=== PATIENT | female | born 1940 | race Caucasian/White ===

== ENCOUNTER → 2017-04-30 | Outpatient (CLI) | payer OTHER ==
[~2017-04-30] MED LIST: BIMA01SOL OU; BIOT10008 PO; CALC600T57 PO; CALCIUM PO; CELE10TA PO; CELE1CAP4 PO; CITA20TA4 PO; COLA100C5 PO; COUM1TAB17 PO; COUM2.5T17 PO; ESTR2TA PO; LISI-542 PO; MAGN400T5 PO; MELA1TAB PO; METF500T13 PO; MULTCAP PO; OMEG350C PO; PERC5TAB12 PO; SIMV10TA2 PO; SPIR25TA2 PO; VIT D PO; VITA100066 PO
[2017-04-30 14:33] LABS: BLOOD UREA NITROGEN 17 MG/DL (7-18); CREATININE FOR GFR 0.78 MG/DL (0.55-1.02); GLOMERULAR FILTRATION RATE > 60.0 (>39)
== END ==
LOC: M LAB 12:59
PROVIDERS: ATTEND Surgery Plastic and Reconstructive Surgery
DX: T85.44XA Capsular contracture of breast implant, initial encounter (principal); Y83.1 Surgical operation with implant of artificial internal device as the cause of abnormal reaction of the patient, or of later complication, without mention of misadventure at the time of the procedure

== ENCOUNTER → 2017-09-04 | Outpatient (CLI) | payer OTHER ==
[2017-09-04 11:25] LABS: MICROSCOPIC INDICATED? MAN YES (NO)
[2017-09-04 11:28] LABS: MEAN CORPUSCULAR HEMOGLOBIN 28.8 pg (27.0-33.0); MEAN CORPUSCULAR HGB CONC 33.3 g/dl (32.0-36.5); MEAN CORPUSCULAR VOLUME 86.6 fl (80.0-96.0); PLATELET COUNT, AUTOMATED 282 10^3/uL (150-450); RED CELL DISTRIBUTION WIDTH 12.5 % (11.5-14.5); WHITE BLOOD COUNT 5.6 10^3/uL (4.0-10.0)
[2017-09-04 11:29] LABS: BACTERIA, URINE SMALL AMOUNT; HYALINE CAST, URINE NONE SEEN /lpf (0-1); MICROSCOPIC EXAM PERFORMED; RBC, URINE NONE SEEN /hpf (0-3); SQUAMOUS EPITHELIAL CELL URINE SMALL AMOUNT /hpf (SMALL AMT)
[2017-09-04 11:39] LABS: INR 0.86
--- NOTE | 2017-09-04 11:56 | REP ---
Chest two views HISTORY: Preop Comparison: 07/13/2016 The lungs are clear. The heart is normal in size. The pulmonary vasculature is normal in appearance. The bony structure is intact. IMPRESSION: No acute disease. Signed by Amrit Cooper MD 09/04/2017 11:48 A
[2017-09-04 12:12] LABS: ALBUMIN 3.7 GM/DL (3.2-5.2); ALBUMIN/GLOBULIN RATIO 1.37 (1.00-1.93); ALKALINE PHOSPHATASE 83 U/L (45-117); ALT/SGPT 41 U/L (12-78); ANION GAP 6 MEQ/L (8-16); AST/SGOT 16 U/L (7-37); BILIRUBIN,TOTAL 0.4 MG/DL (0.2-1.0); BLOOD UREA NITROGEN 17 MG/DL (7-18); CALCIUM LEVEL 9.8 MG/DL (8.8-10.2); CARBON DIOXIDE LEVEL 31 MEQ/L (21-32); CHLORIDE LEVEL 104 MEQ/L (98-107); CREATININE FOR GFR 0.81 MG/DL (0.55-1.02); GLOMERULAR FILTRATION RATE > 60.0 (>39); GLUCOSE, FASTING 113 MG/DL (83-110); POTASSIUM SERUM 4.5 MEQ/L (3.5-5.1); SODIUM LEVEL 141 MEQ/L (136-145); TOTAL PROTEIN 6.4 GM/DL (6.4-8.2)
[2017-09-04 12:29] LABS: ERYTHROCYTE SEDIMENTATION RATE 13 mm/hr (0-30)
--- NOTE | 2017-09-06 00:36 | ECGEPIP ---
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 First-degree AV block is new Electronically Signed On 09-06-2017 0:36:04 EST by Terrance Stone
== END ==
LOC: M ADMPAT 09:23
PROVIDERS: ATTEND Orthopaedic Surgery
DX: Z01.818 Encounter for other preprocedural examination (principal); M17.12 Unilateral primary osteoarthritis, left knee; E11.9 Type 2 diabetes mellitus without complications; Z79.01 Long term (current) use of anticoagulants; Z88.0 Allergy status to penicillin; Z79.899 Other long term (current) drug therapy; R10.9 Unspecified abdominal pain

== ENCOUNTER 2017-09-17 09:28 | Inpatient (IN) | payer OTHER ==
[2017-09-04 10:03] VITALS: BP 124/70
--- NOTE | 2017-09-11 15:40 | HPE ---
DATE OF ADMISSION: 09/17/2017 ATTENDING PHYSICIAN: Homero Patterson MD CHIEF COMPLAINT: Left knee pain and stiffness. HISTORY: Patient is a pleasant, 77-year-old female with progressively worsening left knee pain and stiffness. She has failed to improve with conservative measures. She continues to have symptoms with weightbearing activities and activities of daily living (ADL). She has consented for an elective left total knee arthroplasty with Dr. Patterson. Medical optimization with Adonis RESENDIZ pending and was not available for review today. CURRENT MEDICATIONS: - Lumigan 0.01 daily - metformin 500 mg daily - citalopram 20 mg daily - Celebrex 200 mg daily - lisinopril 5 mg daily - Zocor 10 mg daily - She also takes a daily multivitamin, calcium with vitamin D, vitamin D, magnesium, fish oil, melatonin, Biotin and a stool softener. ALLERGIES: AMOXICILLIN. CURRENT MEDICAL CONDITIONS: Diabetes. Depression. Osteoarthritis. PAST SURGICAL HISTORY: Right total knee arthroplasty. Tubal ligation. Breast augmentation. Total hysterectomy. Cholecystectomy. Bladder suspension. SOCIAL HISTORY: Patient denies tobacco or alcohol use. REVIEW OF SYSTEMS: Patient denies fevers, chills, nausea, vomiting, or diarrhea. She denies chest pain, shortness of breath, lightheadedness, headaches, cough, or abdominal pain. She does have continued left knee pain with weightbearing activities and activities of daily living. PHYSICAL EXAMINATION: VITAL SIGNS: Height 5 foot 5 inches. Weight 145 pounds. Temperature 98.5. Blood pressure 130/82. Heart rate 77. Respirations 14. HEAD: Normocephalic. NECK: Supple without lymphadenopathy. HEART: Regular rate and rhythm. LUNGS: Clear to auscultation bilaterally. MUSCULOSKELETAL: Inspection of the left knee reveal no gross abnormalities. Her skin is intact. She does have tenderness along the medial joint line. Range of motion and strength are normal. No hip irritability elicited with range of motion. Her calve is soft, nontender to palpation with no palpable cords noted. LABORATORY DATA: Chest x-ray: No acute disease. EKG: Sinus rhythm with first-degree AV block. Comprehensive metabolic profile: Fasting glucose elevated at 113, BUN 17, creatinine for GFR 0.81, GFR greater than 60, sodium 141, potassium 4.5, chloride 104, carbon dioxide 31, anion gap decreased at 6, calcium 9.8, AST 16, ALT 41, alkaline phosphatase 83, total bilirubin 0.4, total protein 6.4, albumin 3.7, albumin globulin ratio 1.37. Complete blood count: WBC 5.6, RBC 4.69, hemoglobin 13.5, hematocrit 40.6, platelets 282, erythrocyte sedimentation rate 13. Prothrombin time decreased at 11.8, INR 0.86. Nasal and sinus culture shows growth of a few Staphylococcus aureus. Urinalysis positive for trace leukocyte esterase with a urine culture showing Klebsiella pneumoniae, only 20,000 colony count. IMPRESSION/PLAN: 1. Left knee degenerative arthritis with x-rays notable for end stage degenerative changes. Patient has consented for an elective left total knee arthroplasty with Dr. Patterson. Medical optimization pending with Adonis RESENDIZ. 2. Nasal and sinus culture revealing Staphylococcus aureus. Patient treated per protocol with nasal Bactroban and Hibiclens scrubs. [facility]
[~2017-09-17] VITALS: Ht 165.1 cm; Wt 68.4 kg
[2017-09-17] MEDS ORDERED: ACETAMINOPHEN 500 MG TAB PO ONE (09:45)
[2017-09-17] MEDS ORDERED: LR 1,000 ML IV ONE (09:45)
[2017-09-17] MEDS ORDERED: TRANEXAMIC ACID 100 MG/ML 10ML VIAL As Ordered ONE (10:45)
[2017-09-17] MEDS ORDERED: EPINEPHrine INJ 1 MG/ML 1ML AMP As Ordered ONE (10:46)
[2017-09-17] MEDS ORDERED: ceFAZolin 1GM INJ (J0690) As Ordered ONE (10:46)
[2017-09-17] MEDS ORDERED: BUPIVACAINE HCL 0.25% 10 ML VIAL As Ordered ONE (10:46)
[2017-09-17] MEDS ORDERED: BUPIVACAINE LIPOSOME/PF 1.3% 20 ML VIAL (13.3MG/ML)(EXPAREL) As Ordered ONE (10:46)
[2017-09-17] MEDS ORDERED: fentaNYL 100 MCG/2 ML INJECTION (J3010) As Ordered ONE ×2 (11:12→13:10)
[2017-09-17] MEDS ORDERED: MIDAZOLAM INJ 2 MG/2 ML VIAL (J2250) As Ordered ONE ×2 (11:12→13:10)
[2017-09-17] MEDS ORDERED: fentaNYL 100 MCG/2 ML INJECTION (J3010) IV ONE (12:00)
[2017-09-17] MEDS ORDERED: MIDAZOLAM INJ 2 MG/2 ML VIAL (J2250) IV ONE (12:00)
[2017-09-17] MEDS ORDERED: EPINEPHrine INJ 1 MG/ML 1ML AMP ONE (12:43)
[2017-09-17] MEDS ORDERED: dexameTHASONE 10 MG/1 ML VIAL PRES.FREE (J1100) ONE (12:43)
[2017-09-17] MEDS ORDERED: ROPIvacaine 0.5% 30 ML INJECTION (J2795) ONE (12:43)
[2017-09-17] MEDS ORDERED: PHENYLephrine HCL 500 MCG/5 ML (100MCG/ML) SYRINGE (J2370) As Ordered ONE (13:10)
[2017-09-17] MEDS ORDERED: LIDOCAINE 2% INJ 100 MG/5 ML SDV (FOR ANES.) As Ordered ONE (13:10)
[2017-09-17] MEDS ORDERED: PROPOFOL 200 MG/20 ML VIAL As Ordered ONE (13:10)
[2017-09-17] MEDS ORDERED: ePHEDrine SULFATE 25 MG/5 ML(5MG/ML) SYRINGE As Ordered ONE (13:18)
--- NOTE | 2017-09-17 14:50 | RO ---
DATE OF OPERATION: 09/17/2017 PREOPERATIVE DIAGNOSIS: Left knee degenerative arthritis. POSTOPERATIVE DIAGNOSIS: Left knee degenerative arthritis. PROCEDURE: Left total knee arthroplasty using a size 2.5 cruciate-retaining femoral component, 2.5 tibial tray, 10 mm rotating-platform polyethylene insert and a 32 mm polyethylene button. The prosthesis was a PFC knee made by [employer]. All components were cemented. SURGEON: Homero Patterson MD CHIEF POWER DISPATCHER: Heydi Sharon Mcdonald ANESTHESIA: Spinal with left femoral nerve block. COMPLICATIONS: None. ESTIMATED BLOOD LOSS: Less than 20 mL. SPECIMENS: Joint surface. DESCRIPTION OF PROCEDURE: After antibiotics were given intravenously preoperatively and a successful left femoral nerve block and then a spinal anesthetic was induced, the tourniquet was placed on the left upper thigh and not inflated. The left lower extremity was carefully prepped and draped in the usual sterile fashion. Then, after appropriate time-out, the leg was elevated, and the tourniquet was inflated to 250 mmHg for 49 minutes. A longitudinal incision was made for a medial parapatellar approach to the knee. Bovie cautery was used to coagulate the crossing vessels. A medial parapatellar arthrotomy was performed. Subperiosteal dissection around the proximal medial and proximal lateral tibial plateau was performed. Then, the patella was everted, and the knee was flexed. The anterior cruciate ligament (ACL) was debrided. The drill placed down the center of the femoral canal, followed by the distal femoral cutting jig set at 5-degree valgus cut for a left knee at 10-mm resection level. The block was pinned in position and then the distal femoral cut performed. AP sizing jig measured for a 2.5 prosthesis. The 3-degree external rotation block was then pinned, followed by the 4-in-1 block, and then the anterior and posterior chamfer cuts performed, taking great care to protect the surrounding soft tissues. We then exposed the proximal tibia, used the extramedullary alignment jig to estimate being parallel to the mechanical axis of the tibia, referencing off the medial tibial condyle, which is the bare bone exposed. We measured 4 mm from that position. Then, the block was pinned into position. A secondary check with the extramedullary oly confirmed that we appeared to be parallel to the mechanical axis. The proximal tibial osteotomy was thus performed. Then, we placed the lamina supervisor fleshing laterally and performed a completion of medial meniscectomy and debridement of the posterior and medial osteophytes. Then placed the lamina supervisor fleshing medially and performed a completion of lateral meniscectomy and debridement of the posterior and lateral osteophytes. The 10-mm spacer block fit nicely with good symmetry in flexion and in extension. It was very stable to varus and valgus stress testing. We then exposed the proximal tibia, sized for a 2.5 tray, which was pinned in position, followed by the reamer and broach. The trial polyethylene placed. The trial femoral component was placed. The knee brought into extension, everted the patella, and the patellar osteotomy was performed, sized for a 32 button. The lug holes drilled. The patellar prosthesis applied, and the patellofemoral tracking was anatomic. We then drilled the lug holes for the femur, removed all the trial components. I injected Exparel into the periosteal soft tissues of the femur and tibia, as well as the posterior joint capsule, as well as the arthrotomy edges. Sharon Mcdonald then mixed the cement on the back table as I prepared the bony surfaces for cementing. A copious amount of pulsatile lavage irrigant solution. She was also critical to the success of the procedure by helping to manipulate the knee, help with appropriate soft tissue retraction, such that I could perform the operation smoothly and efficiently. She also helped to close the wound, as well as prepare the patient. After all the bony surfaces were thoroughly dried, I cemented the tibial tray, removed excess cement, placed the polyethylene, cemented the femoral component, removed excess cement, brought the knee into extension, cemented the patellar button, removed excess cement, and held the knee into extension with the knee patellar clamp applied until the cement hardened. As we were awaiting this, I copiously pulsatile lavage irrigated out the knee joint once again, then placed tranexamic acid into the knee, and then closed the arthrotomy beginning at the apex with two #1 polydioxanone suture (PDS) sutures, the medial parapatellar area was closed with a single #1 PDS suture, and then we closed the capsule with a running #1 Stratafix double-arm, then released the tourniquet, and then irrigated again, and then closed the deep subdermal tissues with interrupted #2-0 PDS. The skin was closed with dev, covered by Adaptic dry sterile bulky dressing. She was then transferred to the recovery room in stable condition. There were no intraoperative complications.
--- NOTE | 2017-09-17 14:50 | CR.PDOC ---
[facility] Consultation Consultation CONSULTATION REPORT FOR: Dr Thrasher REASON FOR CONSULTATION: Medical Management DATE OF VISIT: 09/17/17 ATTENDING: Dr. Allan Rios PCP: Dr Mcdonald HPI: 77year oldF with a past medical history significant for OA, POD 0 Lt TKA as per Orthopedics. Pt is seen in PACU. No acute medical complaints. Pt states pain is controlled. Denies any fevers, chills, weakness, fatigue, Headache, Chest Pain, Shortness of breath, cough, palpitations, abdominal pain, N/V/D or changes in bowel or bladder habits. PMHx: NIDDM Depression. Osteoarthritis. HTN HLD glaucoma PSH: Right total knee arthroplasty. Tubal ligation. Breast augmentation. Total hysterectomy. Cholecystectomy. Bladder suspension. SOCHX: Resides in: [facility] Marital Status: Tobacco use: denies ETOH: denies FAMHX: Mother HTN, cerebral hemorrhage. Father cerebral hemorrhage. Siblings. H/O Breast Ca, DM. Children 2 sons, 1 dtr. thyroid disease 1 son overdose. ROS: As noted in HPI, otherwise 11pt ROS of systems reviewed and unremarkable. PE: GEN: 77yoF, appears stated age. Awake and alert. No acute distress. Alert and oriented x 3. HEENT: Normocephalic, atraumatic. Sclera are nonicteric. Conjunctiva without injection. Nose midline. No facial asymmetry. Moist mucous membranes. Pharynx pink and moist. Neck supple, trachea midline. No lymphadenopathy or thyromegaly appreciated. CHEST: Regular rate and rhythm, +S1, +S2 LUNGS: Clear to auscultation bilaterally. No wheezes, rales, or rhonchi. Breathing appears symmetric and easy. Patient is speaking in full sentences. No accessory muscle use. ABD: Round, soft, non-tender, non-distended. +Bowel sounds throughout. No rebound or guarding. No costovertebral angle tenderness. EXT: Pulses 2+ bilaterally dorsalis pedis and radial. No lower extremity edema appreciated. SKIN: Humphreys, dry, warm. Capillary refill <2sec. No rashes. NEURO: Alert and oriented x 3. A/P. 77year oldF with a past medical history significant for OA, POD 0 Lt TKA as per Orthopedics. Pt is seen in PACU. 1. POD 0 Lt TKA. Mgmt as per Orthopedics. Pain control as per Ortho. Bowel care as per Ortho. DVT px as per Ortho. Check labs in AM. CBC/CMP/Mag level. 2. NIDDM Metformin on hold. CC diet. SSI. 3. HTN. Lisinopril on hold, likely restart in AM. 4. HLD. Statin. 5. Depression. Celexa. 6. Glaucoma. Cont outpt regimen. Thank you for your consultation. We will continue to follow along with you. Vital Signs/I&O Vital Signs Date Time Temp Pulse Resp B/P (MAP) Pulse Ox O2 Delivery O2 Flow Rate FiO2 09/17/17 12:05 74 18 122/59 (80) 100 Nasal Cannula 3 09/17/17 11:10 98.9 I&O- Last 24 Hours up to 6 AM 09/18/17 06:00 Intake Total 0 ml Output Total 650 ml Balance -650 ml Laboratory Data Labs 24H Laboratory Tests 2 09/17/17 10:55: Bedside Glucose (Misc Panel) 129H CBC/BMP Item Value Date Time White Blood Count 5.6 10^3/uL 09/04/17 1107 Red Blood Count 4.69 10^6/uL 09/04/17 1107 Hemoglobin 13.5 g/dl 09/04/17 1107 Hematocrit 40.6 % 09/04/17 1107 Mean Corpuscular Volume 86.6 fl 09/04/17 1107 Mean Corpuscular Hemoglobin 28.8 pg 09/04/17 1107 Mean Corpuscular Hemoglobin Concent 33.3 g/dl 09/04/17 1107 Red Cell Distribution Width 12.5 % 09/04/17 1107 Platelet Count 282 10^3/uL 09/04/17 1107 Erythrocyte Sedimentation Rate 13 mm/hr 09/04/17 1107 Sodium Level 141 MEQ/L 09/04/17 1107 Potassium Level 4.5 MEQ/L 09/04/17 1107 Chloride Level 104 MEQ/L 09/04/17 1107 Carbon Dioxide Level 31 MEQ/L 09/04/17 1107 Anion Gap 6 MEQ/L L 09/04/17 1107 Blood Urea Nitrogen 17 MG/DL 09/04/17 1107 Creatinine 0.81 MG/DL 09/04/17 1107 Glomerular Filtration Rate > 60.0 09/04/17 1107 Fasting Glucose 113 MG/DL H 09/04/17 1107 Calcium Level 9.8 MG/DL 09/04/17 1107 Total Bilirubin 0.4 MG/DL 09/04/17 1107 Aspartate Amino Transf (AST/SGOT) 16 U/L 09/04/17 1107 Alanine Aminotransferase (ALT/SGPT) 41 U/L 09/04/17 1107 Alkaline Phosphatase 83 U/L 09/04/17 1107 Total Protein 6.4 GM/DL 09/04/17 1107 Albumin 3.7 GM/DL 09/04/17 1107 Albumin/Globulin Ratio 1.37 09/04/17 1107 Allergies Coded Allergies: Amoxicillin (Verified Allergy, Intermediate, RASH, 09/17/17) TAPE (Verified Allergy, Unknown, ADHESIVES, 09/17/17) Home Medications Scheduled (Multivitamins) 1 Cap Cap, 1 CAP PO DAILY, (Reported) (Ewing-3 350 mg) 1 Cap Cap, 1 CAP PO DAILY, (Reported) (Calcium + D3 600-200 mg-Unit) Unknown Strength Tab, Unknown Dose PO DAILY, ( Reported) Bimatoprost (Lumigan) 50 Drop/2.5 Ml Paige, 1 DROP OU DAILY, (Reported) Biotin (Vitamin H) (Biotin) 1,000 Mcg Tab, 1,000 MCG PO DAILY, (Reported) Cholecalciferol (Vitamin D) 1,000 Unit Tab, 1,000 UNIT PO DAILY, (Reported) Citalopram Hydrobromide (Citalopram Hydrobromide) 20 Mg Tab, 20 MG PO DAILY, ( Reported) Docusate Sodium (Colace) 100 Mg Cap, 100 MG PO DAILY, (Reported) Lisinopril (Lisinopril) 5 Mg Tab, 5 MG PO DAILY, (Reported) Magnesium Oxide (Magnesium Oxide 400) 400 Mg Tab, 400 MG PO DAILY, (Reported) Melatonin (Melatonin) 1 Mg Tab, 1.5 MG PO DAILY, (Reported) Metformin Hydrochloride (Metformin HCl) 500 Mg Tab, 500 MG PO DAILY, (Reported) Simvastatin (Simvastatin) 10 Mg Tab, 10 MG PO DAILY, (Reported) Veronika Alan Sep 17, 2017 14:50
[2017-09-17] MEDS ORDERED: MORPHINE 1MG/ML IN 0.9% NACL 100ML IV BAG IV PRN (15:00)
[2017-09-17] MEDS ORDERED: diphenhydrAMINE INJ 50MG/ML VIAL (J1200) IV PRN (15:00)
[2017-09-17] MEDS ORDERED: PERCOCET 5MG/325MG TAB PO PRN (15:00)
[2017-09-17] MEDS ORDERED: EPIDURAL/PCA KEYS XX PRN (15:00)
[2017-09-17] MEDS ORDERED: ONDANSETRON 4MG/2ML VIAL (J2405) IV PRN ×2 (15:00)
[2017-09-17] MEDS ORDERED: NALOXONE INJ 0.4 MG/1 ML VIAL (J2310) IV PRN (15:00)
[2017-09-17] MEDS ORDERED: fentaNYL 100 MCG/2 ML INJECTION (J3010) IV PRN (15:00)
[2017-09-17] MEDS ORDERED: LR 1,000 ML IV SCH (15:00)
[2017-09-17] MEDS ORDERED: FLEET ENEMA PR PRN (15:00)
[2017-09-17] MEDS ORDERED: ACETAMINOPHEN TAB 650MG DOSE (2X325MG) PO PRN (15:00)
[2017-09-17] MEDS ORDERED: NALBUPHINE HCL 10 MG/ML AMP (J2300) IV PRN (15:00)
[2017-09-17] MEDS ORDERED: GLUCAGON FOR INJ 1 MG VIAL (J1610) SC PRN (15:45)
[2017-09-17] MEDS ORDERED: GLUCOSE 4 GM CHEW TABLET PO PRN (15:45)
[2017-09-17] MEDS ORDERED: DEXTROSE 50% 50 ML SYRINGE IV PRN (15:45)
[2017-09-17] MEDS ORDERED: WARFARIN SOD 5 MG TAB PO ONE (17:00)
[2017-09-17] MEDS: HumaLOG INSULIN (NovoLOG) PER UNIT SC SCH ×2 (17:30→21:24)
[2017-09-17 18:30] VITALS: BP 156/73
[2017-09-17 19:00] VITALS: BP 148/74
[2017-09-17] MEDS: LR 1,000 ML IV SCH (19:48)
[2017-09-17 20:00] VITALS: BP 141/71
[2017-09-17 21:00] VITALS: BP 143/71
[2017-09-17] MEDS: CitaloPRAM (CeleXA) 20 MG TAB PO SCH (21:23)
[2017-09-17] MEDS: SIMVASTATIN 10 MG TAB PO SCH (21:23)
[2017-09-17] MEDS: SENOKOT S TAB PO SCH (21:23)
[2017-09-17 22:00] VITALS: BP 141/70
[2017-09-17 23:00] VITALS: BP 138/70
[2017-09-18 02:00] VITALS: BP 138/74
[2017-09-18] MEDS: LR 1,000 ML IV SCH (03:30)
[2017-09-18 06:00] VITALS: BP 136/69
[2017-09-18] MEDS ORDERED: ONDANSETRON 4 MG TAB (S0181) PO PRN (06:45)
[2017-09-18] MEDS ORDERED: PERCOCET 5MG/325MG TAB PO PRN (06:45)
[2017-09-18] MEDS ORDERED: DEXTROSE 50% 50 ML SYRINGE IV PRN (07:30)
[2017-09-18] MEDS ORDERED: HumaLOG INSULIN (NovoLOG) PER UNIT SC SCH ×2 (07:30→21:00)
[2017-09-18] MEDS ORDERED: GLUCOSE 4 GM CHEW TABLET PO PRN (07:30)
[2017-09-18 07:44] LABS: IMMATURE GRANULOCYTE % 0.4 % (0-0); LYMPH # 1.6 10^3/uL (1.5-4.5); LYMPH % 17.6 % (24.0-44.0); MEAN CORPUSCULAR HEMOGLOBIN 28.4 pg (27.0-33.0); MEAN CORPUSCULAR HGB CONC 32.8 g/dl (32.0-36.5); MEAN CORPUSCULAR VOLUME 86.6 fl (80.0-96.0); MONO # 0.9 10^3/uL (0.0-0.8); MONO % 10.1 % (0.0-5.0); NEUTROPHILS # 6.6 10^3/uL (1.8-7.7); NEUTROPHILS % 71.9 % (36.0-66.0); PLATELET COUNT, AUTOMATED 216 10^3/uL (150-450); RED CELL DISTRIBUTION WIDTH 12.7 % (11.5-14.5); WHITE BLOOD COUNT 9.2 10^3/uL (4.0-10.0)
[2017-09-18 07:55] LABS: INR 1.02
[2017-09-18 08:07] LABS: ALBUMIN/GLOBULIN RATIO 1.11 (1.00-1.93); ALKALINE PHOSPHATASE 116 U/L (45-117); ALT/SGPT 422 U/L (12-78); ANION GAP 7 MEQ/L (8-16); AST/SGOT 667 U/L (7-37); BILIRUBIN,TOTAL 0.4 MG/DL (0.2-1.0); BLOOD UREA NITROGEN 11 MG/DL (7-18); CALCIUM LEVEL 8.7 MG/DL (8.8-10.2); CARBON DIOXIDE LEVEL 29 MEQ/L (21-32); CHLORIDE LEVEL 107 MEQ/L (98-107); CREATININE FOR GFR 0.78 MG/DL (0.55-1.02); GLOMERULAR FILTRATION RATE > 60.0 (>39); GLUCOSE, FASTING 112 MG/DL (83-110); MAGNESIUM LEVEL 1.9 MG/DL (1.8-2.4); POTASSIUM SERUM 4.3 MEQ/L (3.5-5.1); SODIUM LEVEL 143 MEQ/L (136-145); TOTAL PROTEIN 5.7 GM/DL (6.4-8.2)
[2017-09-18] MEDS: HumaLOG INSULIN (NovoLOG) PER UNIT SC SCH ×4 (08:36→21:00)
[2017-09-18] MEDS: MIRALAX *UNIT DOSE* 17GM PACKET PO SCH (08:36)
[2017-09-18] MEDS: MOM 30ML SUSPENSION UDC PO SCH (08:36)
[2017-09-18] MEDS: SENOKOT S TAB PO SCH ×2 (08:37→21:45)
[2017-09-18] MEDS: PERCOCET 5MG/325MG TAB PO PRN ×4 (08:37→22:45)
[2017-09-18] MEDS: MULTIVITAMINS/MINERALS THERAP 1 TAB PO SCH (08:37)
[2017-09-18] MEDS ORDERED: OPTH OU SCH (09:00)
[2017-09-18] MEDS ORDERED: LUMIGAN 0.01% OU SCH (09:00)
[2017-09-18 09:39] LABS: TRIGLYCERIDES LEVEL 76 MG/DL (<150)
[2017-09-18 10:00] VITALS: BP 135/68
[2017-09-18 13:58] LABS: CHOLESTEROL LEVEL 243 MG/DL (<200)
[2017-09-18 14:00] VITALS: BP 133/69
[2017-09-18] MEDS ORDERED: WARFARIN SOD 5 MG TAB PO ONE (17:00)
--- NOTE | 2017-09-18 19:50 | REP ---
LEFT KNEE, TWO VIEWS: HISTORY: Knee replacement. The patient is status post left total knee replacement. There is no acute fracture or dislocation. A small amount of subcutaneous air and surgical dev are present in the overlying soft tissue. IMPRESSION: The patient is status post left total knee replacement. There is anatomic alignment. Signed by Amrit Cooper MD 09/19/2017 08:11 A
[2017-09-18] MEDS ORDERED: MELATONIN 5MG TABLET (PATIENT'S OWN MED) PO SCH ×2 (21:00)
[2017-09-18] MEDS ORDERED: ENTER DRUG NAME HERE (PATIENT'S OWN MED) OU SCH (21:00)
[2017-09-18] MEDS ORDERED: LUMIGAN 0.01% EYE DROPS (PATIENT'S OWN MED) OU SCH ×2 (21:00)
[2017-09-18] MEDS ORDERED: ENTER DRUG NAME HERE (PATIENT'S OWN MED) PO SCH (21:00)
[2017-09-18] MEDS: SIMVASTATIN 10 MG TAB PO SCH (21:45)
[2017-09-18] MEDS: CitaloPRAM (CeleXA) 20 MG TAB PO SCH (21:45)
[2017-09-18 22:00] VITALS: BP 133/69
[2017-09-19] MEDS: PERCOCET 5MG/325MG TAB PO PRN ×3 (05:21→14:52)
[2017-09-19 06:00] VITALS: BP 152/77
[2017-09-19 07:10] LABS: ANION GAP 5 MEQ/L (8-16); BLOOD UREA NITROGEN 9 MG/DL (7-18); CALCIUM LEVEL 8.6 MG/DL (8.8-10.2); CARBON DIOXIDE LEVEL 29 MEQ/L (21-32); CHLORIDE LEVEL 104 MEQ/L (98-107); CREATININE FOR GFR 0.87 MG/DL (0.55-1.02); GLOMERULAR FILTRATION RATE > 60.0 (>39); GLUCOSE, FASTING 158 MG/DL (83-110); POTASSIUM SERUM 3.9 MEQ/L (3.5-5.1); SODIUM LEVEL 138 MEQ/L (136-145)
[2017-09-19 07:17] LABS: BASO % 0.1 % (0.0-1.0); EOS # 0.1 10^3/uL (0.0-0.50); EOS % 0.6 % (0.0-3.0); IMMATURE GRANULOCYTE % 0.4 % (0-0); LYMPH # 1.4 10^3/uL (1.5-4.5); LYMPH % 17.1 % (24.0-44.0); MEAN CORPUSCULAR HEMOGLOBIN 28.1 pg (27.0-33.0); MEAN CORPUSCULAR HGB CONC 32.6 g/dl (32.0-36.5); MEAN CORPUSCULAR VOLUME 86.1 fl (80.0-96.0); MONO # 0.8 10^3/uL (0.0-0.8); MONO % 9.4 % (0.0-5.0); NEUTROPHILS # 5.9 10^3/uL (1.8-7.7); NEUTROPHILS % 72.4 % (36.0-66.0); PLATELET COUNT, AUTOMATED 216 10^3/uL (150-450); RED CELL DISTRIBUTION WIDTH 12.8 % (11.5-14.5); WHITE BLOOD COUNT 8.2 10^3/uL (4.0-10.0)
[2017-09-19 07:26] LABS: INR 1.58
[2017-09-19 07:42] LABS: ALBUMIN 2.9 GM/DL (3.2-5.2); ALBUMIN/GLOBULIN RATIO 0.91 (1.00-1.93); ALKALINE PHOSPHATASE 174 U/L (45-117); ALT/SGPT 299 U/L (12-78); AST/SGOT 232 U/L (7-37); BILIRUBIN,DIRECT 0.1 MG/DL (0.0-0.2); BILIRUBIN,TOTAL 0.4 MG/DL (0.2-1.0); TOTAL PROTEIN 6.1 GM/DL (6.4-8.2)
[2017-09-19] MEDS ORDERED: COUM2.5T17 PO (07:44)
[2017-09-19] MEDS ORDERED: PERC5TAB12 PO (07:44)
[2017-09-19] MEDS: HumaLOG INSULIN (NovoLOG) PER UNIT SC SCH ×2 (08:37→12:00)
[2017-09-19] MEDS: MOM 30ML SUSPENSION UDC PO SCH (08:37)
[2017-09-19] MEDS: MIRALAX *UNIT DOSE* 17GM PACKET PO SCH (08:37)
[2017-09-19] MEDS: SENOKOT S TAB PO SCH (08:38)
[2017-09-19] MEDS: MULTIVITAMINS/MINERALS THERAP 1 TAB PO SCH (08:38)
[2017-09-19 14:00] VITALS: BP 162/91
--- NOTE | 2017-09-21 17:10 | DSES ---
DATE OF ADMISSION: 09/17/2017 DATE OF DISCHARGE: 09/19/2017 CHIEF COMPLAINT: Left knee pain and stiffness. DISCHARGE DIAGNOSIS: Left knee pain and stiffness, status post left total knee arthroplasty. HISTORY: This is a 77-year-old female with progressively worsening left knee pain and stiffness. She elected for surgery for her continued symptoms. PROCEDURE PERFORMED: Left total knee arthroplasty. HOSPITAL COURSE: The patient was admitted on the day of surgery and underwent left total knee arthroplasty without complications. On the day of discharge, the patient was doing well. She was weightbearing as tolerated, will move her knee to prevent stiffness, will use adjusted dose Coumadin and thromboembolism deterrent stockings (TEDs) for 30 days postoperatively for deep venous thrombosis (DVT) prophylaxis, and she will use oral medications for pain control. Also, the patient will resume preoperative medications and diet and will followup in the office in two weeks for wound check and staple removal.
== END 2017-09-19 15:05 | disposition home health service (06) | DRG 470 ==
LOC: M OR 09:28 → M MS5PR 18:30
PROVIDERS: ADMIT Orthopaedic Surgery; ATTEND Orthopaedic Surgery
PROC: 0SRD0J9 Replacement of Left Knee Joint with Synthetic Substitute, Cemented, Open Approach (ICD-10-PCS; principal; 2017-09-17 12:05)
DX: M17.12 Unilateral primary osteoarthritis, left knee (principal); Z79.899 Other long term (current) drug therapy; E11.9 Type 2 diabetes mellitus without complications; F32.9 Major depressive disorder, single episode, unspecified; H40.9 Unspecified glaucoma

== ENCOUNTER → 2017-09-24 | Outpatient (REF) | payer OTHER ==
[2017-09-24 14:27] LABS: INR 2.14
== END ==
LOC: M SHH 13:34
PROVIDERS: ATTEND Nurse Practitioner Family
DX: Z51.81 Encounter for therapeutic drug level monitoring (principal); Z79.01 Long term (current) use of anticoagulants

== ENCOUNTER → 2017-09-27 | Outpatient (REF) | payer OTHER ==
[2017-09-27 14:18] LABS: INR 1.49
== END ==
LOC: M SHH 13:50
PROVIDERS: ATTEND Nurse Practitioner Family
DX: Z51.81 Encounter for therapeutic drug level monitoring (principal); Z79.01 Long term (current) use of anticoagulants

== ENCOUNTER → 2017-10-01 | Outpatient (REF) | payer OTHER ==
[2017-10-01 17:43] LABS: INR 1.33
== END ==
LOC: M SHH 15:57
PROVIDERS: ATTEND Nurse Practitioner Family
DX: Z51.81 Encounter for therapeutic drug level monitoring (principal); Z79.01 Long term (current) use of anticoagulants

== ENCOUNTER → 2017-10-08 | Outpatient (REF) | payer OTHER ==
[2017-10-08 15:57] LABS: INR 1.83
== END ==
LOC: M SHH 15:25
PROVIDERS: ATTEND Nurse Practitioner Family
DX: Z79.01 Long term (current) use of anticoagulants (principal)

== ENCOUNTER → 2017-10-11 | Outpatient (REF) | payer OTHER ==
[2017-10-11 12:56] LABS: INR 1.49
== END ==
LOC: M SHH 12:28
PROVIDERS: ATTEND Nurse Practitioner Family
DX: Z79.01 Long term (current) use of anticoagulants (principal)

== ENCOUNTER → 2018-09-09 | Outpatient (REF) | payer OTHER | LOC: M LAB REF 13:24 | DX: L82.0 Inflamed seborrheic keratosis (principal); L57.0 Actinic keratosis; B07.0 Plantar wart | CPT/HCPCS: 88305 ==

== ENCOUNTER → 2019-06-30 | Outpatient (REF) | payer MEDICARE ==
[~2019-06-30] MED LIST changes: +CALC500T49 PO; -CITA20TA4 PO; +CITA20TA6 PO; -ESTR2TA PO; +ESTR2TAB2 PO; +MAGN250T9 PO; +MELA5TAB20 PO; +SPIR-10 PO; -SPIR25TA2 PO; +VITA100067 PO
[2019-06-30 13:20] LABS: BASO % 0.6 % (0.0-1.0); EOS # 0.2 10^3/uL (0.0-0.5); HEMATOCRIT 38.4 % (36.0-47.0); HEMOGLOBIN 12.7 g/dl (12.0-15.5); LYMPH # 1.3 10^3/uL (1.5-5.0); LYMPH % 26.4 % (24.0-44.0); MEAN CORPUSCULAR HEMOGLOBIN 30.1 pg (27.0-33.0); MEAN CORPUSCULAR HGB CONC 33.1 g/dl (32.0-36.5); MONO # 0.4 10^3/uL (0.0-0.8); MONO % 7.3 % (0.0-5.0); NEUTROPHILS # 3.1 10^3/uL (1.5-8.5); NEUTROPHILS % 62.3 % (36.0-66.0); PLATELET COUNT, AUTOMATED 243 10^3/uL (150-450); RED BLOOD COUNT 4.22 10^6/uL (4.00-5.40); WHITE BLOOD COUNT 4.9 10^3/uL (4.0-10.0)
[2019-06-30 13:46] LABS: ERYTHROCYTE SEDIMENTATION RATE 11 mm/hr (0-30)
== END ==
LOC: M LABDRAW1 12:05
PROVIDERS: ATTEND Orthopaedic Surgery
DX: Z96.652 Presence of left artificial knee joint (principal)

== ENCOUNTER → 2019-07-01 | Outpatient (REF) | payer MEDICARE | LOC: M SFHCPLAZ 17:22 | PROVIDERS: ATTEND Dermatology | DX: D23.71 Other benign neoplasm of skin of right lower limb, including hip (principal) ==

== ENCOUNTER → 2019-07-14 | Outpatient (CLI) | payer MEDICARE ==
--- NOTE | 2019-07-14 15:12 | REP ---
TRIPLE PHASE BONE SCAN OF KNEES: Following the intravenous administration of 22 mCi of technetium-99m MDP, images are obtained in multiple projections in the blood flow and blood pool phase. Photopenic areas are seen in the knee joints bilaterally compatible with bilateral knee prostheses. There is symmetrical blood pooling. Delayed images show symmetrical osseous uptake at the margins of the bilateral knee prostheses, both in the distal femurs and proximal tibias. There is no significant asymmetric uptake and no compelling scintigraphic evidence of significant loosening or infection of either knee prosthesis. Electronically Signed by Jordan Guerra MD 07/15/2019 09:57 A
== END ==
LOC: M RAD 10:01
PROVIDERS: ATTEND Orthopaedic Surgery
DX: Z96.652 Presence of left artificial knee joint (principal)
CPT/HCPCS: 78315; A9503

== ENCOUNTER → 2019-10-09 | Outpatient (REF) | payer MEDICARE ==
[~2019-10-09] MED LIST changes: -SIMV10TA2 PO; +SIMV10TA21 PO
[2019-10-09 13:42] LABS: APPEARANCE, URINE CLEAR (CLEAR); BACTERIA, URINE AUTO NEGATIVE (NEGATIVE); BILIRUBIN, URINE AUTO NEGATIVE (NEGATIVE); BLOOD, URINE BLOOD NEGATIVE (NEGATIVE); COLOR, URINE YELLOW (YELLOW); GLUCOSE, URINE (UA) AUTO NEGATIVE (NEGATIVE); KETONE, URINE AUTO NEGATIVE (NEGATIVE); LEUKOCYTE ESTERASE, URINE AUTO 1+ (NEGATIVE); MUCUS, URINE SMALL (NEGATIVE); NITRITE, URINE AUTO NEGATIVE (NEGATIVE); PROTEIN, URINE AUTO NEGATIVE (NEGATIVE); RBC, URINE AUTO 0 /HPF (0-3); SPECIFIC GRAVITY URINE AUTO 1.015 (1.002-1.035); SQUAMOUS EPITHELIAL CELL UR AU 0 /HPF (0-6); UROBILINOGEN, URINE AUTO 0.2 mg/dL (0.0-2.0); WBC, URINE AUTO 3 /HPF (0-3)
== END ==
LOC: M SMT 13:12
PROVIDERS: ATTEND Nurse Practitioner Women's Health
DX: Z87.440 Personal history of urinary (tract) infections (principal); Z79.899 Other long term (current) drug therapy
CPT/HCPCS: 51798; 81001; 87086; G0463

== ENCOUNTER → 2019-10-16 | Outpatient (CLI) | payer MEDICARE ==
--- NOTE | 2019-10-16 11:02 | REP ---
Clinical: History of urinary tract infection. Technique: Real time scruggs scale and color evaluation using curved array transducer. Findings: The bilateral kidneys demonstrate mild cortical thinning and are essentially normal in contour, size, echogenicity, and reniform shape without hydronephrosis, nephrolithiasis, cystic or renal mass lesion. Right kidney measures 11.0 x 4.4 x 4.1 cm. Left kidney measures 11.0 x 4.0 x 5.0 cm. The bladder is normal in appearance without wall thickening or mass lesion. Bilateral ureteral jets are identified. Prevoid bladder measures 95 ml. Postvoid bladder measures 18 ml. Postvoid residual equals 19%. Impression: 1. Mild renal cortical thinning is nonspecific and likely age-related. Otherwise normal appearance the bilateral kidneys. 2. Normal appearance to the bladder with increased postvoid residual volume of uncertain significance. Electronically Signed by Javier Herndon MD 10/16/2019 10:54 A
== END ==
LOC: M RAD 09:50
PROVIDERS: ATTEND Nurse Practitioner Women's Health
DX: Z87.440 Personal history of urinary (tract) infections (principal)

== ENCOUNTER → 2020-08-30 | Outpatient (REF) | payer MEDICARE | LOC: M LAB REF 14:16 | PROVIDERS: ATTEND Dermatology | DX: C44.319 Basal cell carcinoma of skin of other parts of face (principal); L57.0 Actinic keratosis; L57.8 Other skin changes due to chronic exposure to nonionizing radiation ==

== ENCOUNTER → 2021-06-02 | Outpatient (CLI) | payer MEDICARE ==
[~2021-06-02] MED LIST changes: -LISI-542 PO; +LISI-898 PO
[2021-06-02 15:25] LABS: BASO % 0.5 % (0.0-1.0); EOS # 0.2 10^3/uL (0.0-0.5); HEMOGLOBIN 13.3 g/dl (12.0-15.5); LYMPH # 2.4 10^3/uL (1.5-5.0); LYMPH % 31.5 % (24.0-44.0); MEAN CORPUSCULAR HEMOGLOBIN 28.7 pg (27.0-33.0); MEAN CORPUSCULAR HGB CONC 32.4 g/dl (32.0-36.5); MEAN CORPUSCULAR VOLUME 88.6 fl (80.0-96.0); MONO # 0.5 10^3/uL (0.0-0.8); MONO % 6.3 % (2.0-8.0); NEUTROPHILS # 4.4 10^3/uL (1.5-8.5); NEUTROPHILS % 59.2 % (36.0-66.0); PLATELET COUNT, AUTOMATED 247 10^3/uL (150-450); RED BLOOD COUNT 4.63 10^6/uL (4.00-5.40); WHITE BLOOD COUNT 7.5 10^3/uL (4.0-10.0)
[2021-06-02 15:59] LABS: ALBUMIN 3.8 GM/DL (3.2-5.2); ALT/SGPT 31 U/L (12-78); BILIRUBIN,TOTAL 0.5 MG/DL (0.2-1.0); BLOOD UREA NITROGEN 13 MG/DL (7-18); CALCIUM LEVEL 9.5 MG/DL (8.8-10.2); CARBON DIOXIDE LEVEL 29 MEQ/L (21-32); CHLORIDE LEVEL 106 MEQ/L (98-107); CREATININE FOR GFR 0.81 MG/DL (0.55-1.30); FREE T4 1.02 NG/DL (0.76-1.46); GLOMERULAR FILTRATION RATE > 60.0 (>39); GLUCOSE, FASTING 111 MG/DL (70-100); POTASSIUM SERUM 4.4 MEQ/L (3.5-5.1); RHEUMATOID FACTOR QUANT < 10.0 IU/ML (<15.0); SODIUM LEVEL 141 MEQ/L (136-145); TOTAL PROTEIN 6.7 GM/DL (6.4-8.2)
[2021-06-02 16:00] LABS: VITAMIN B12 LEVEL 761 PG/ML
[2021-06-02 16:01] LABS: ERYTHROCYTE SEDIMENTATION RATE 7 mm/hr (0-30)
[2021-06-02 17:16] LABS: FOLATE 20.9 NG/ML
== END ==
LOC: M PLALAB 12:02
PROVIDERS: ATTEND Psychiatry & Neurology Neurology
DX: D51.9 Vitamin B12 deficiency anemia, unspecified (principal); E11.9 Type 2 diabetes mellitus without complications; E07.9 Disorder of thyroid, unspecified; G62.9 Polyneuropathy, unspecified

== ENCOUNTER → 2021-06-29 | Outpatient (CLI) | payer MEDICARE ==
[~2021-06-29] MED LIST changes: +BIMA01SOL OD; +BIOT10009 PO; +CALC600T61 PO
== END ==
LOC: M LABSMTC 09:22
PROVIDERS: ATTEND Anesthesiology
DX: Z01.812 Encounter for preprocedural laboratory examination (principal)

== ENCOUNTER 2021-07-01 06:06 | Day surgery (SDC) | payer MEDICARE ==
[~2021-07-01] VITALS: Ht 165.1 cm; Wt 63.5 kg
[~2021-07-01 06:06] MED LIST changes: +BSS IRR 500ML/OMIDRIA 4ML IRR BAG (OR ONLY) IO ONE; +CEFUROXIME 1MG/0.1ML INTRACAMERAL INJ ICAM ONE; -ESTR2TAB2 PO; +ESTR2TAB3 PO; +OFLOXACIN 0.3 % (OCUFLOX) OPTH SOL 5ML OD SCH; +PHENYLEPHRINE 2.5% OPHTH SOL 2ML OD SCH; +PROPARACAINE 0.5% OPHTH SOL 15ML OD ONE; +TROPICAMIDE 1% OPHTH SOLN 2ML OD SCH
[2021-07-01] MEDS ORDERED: DUOVISC (0.50ML VISCOAT/0.85ML PROVISC) OPHTH KIT As Ordered ONE ×2 (06:49→07:33)
[2021-07-01] MEDS ORDERED: LIDOCAINE 1% SDV 5ML VIAL As Ordered ONE (06:50)
[2021-07-01] MEDS ORDERED: MIDAZOLAM INJ 2MG/2ML VIAL (J2250 PER 1MG) As Ordered ONE (07:13)
[2021-07-01] MEDS ORDERED: MOXIFLOXACIN 0.8MG 0.8ML INTRAOCULAR SYRINGE As Ordered ONE (07:30)
[2021-07-01] MEDS ORDERED: BSS IRR 500ML/OMIDRIA 4ML IRR BAG (OR ONLY) As Ordered ONE (07:30)
[2021-07-01 08:35] VITALS: BP 128/74
--- NOTE | 2021-07-01 15:53 | ROOPDOC ---
[facility] Report Of Operation Report of Operation DATE OF PROCEDURE: 07/01/21 PREPROCEDURE DIAGNOSES: 1. Mature cataract left eye. 2. Moderate Open Angle Glaucoma left eye POSTPROCEDURE DIAGNOSES: Same. PROCEDURE PERFORMED: 1. Phacoemulsification cataract extraction implantation intraocular lens left eye. 2. IStent Inject W Trabecular Bypass Stent left eye SURGEON: Fareed Arellano MD AUDIOMETRIC TECHNICIAN: None ANESTHESIA: MAC. ESTIMATED BLOOD LOSS: Approximately 0 cc mL. COMPLICATIONS: None. LENS: 20.5. diopters SPECIMENS REMOVED: None INDICATIONS: Patient experienced decreased vision associated with cataract formation. Slit-lamp examination confirmed the diagnosis. Informed consent was obtained for removal of the cataract and placement of intraocular lens. Patient also has open-angle glaucoma treated topically with medications. The patient gave informed consent for placement of Istent inject W trabecular bypass stents (2). The goal of the stents is to decrease reliance on medication and likelihood of additional glaucoma procedures going forward. PROCEDURE NOTE: Patient was identified in the holding room and the operative eye was marked. Patient was wheeled spine the OR suite and positioned on the stretcher. The lids lashes and periocular face of the operative eye were prepped with 5% povidone iodine. The lashes were taped with a Tegaderm dressing. A speculum was placed in the operative eye. 1 mm side-port was created. 1% preservative-free lidocaine was injected. Viscoat was injected. A 2.6 mm stepped groove clear cornea incision was made temporally. A bent cystotome needle and Utrata forceps were used to fashion a continuous curvilinear capsulorhexis. The patient's head was then rotated 45 degrees away from the surgeon and the microscope was rotated 45 degrees toward the surgeon. Viscoat was placed over the cornea. A gonioprism was placed over the cornea. With good visualization of the medial anterior chamber angle structures, the stent internet sales director was advanced through the clear corneal wound. The sheath on the internet sales director was drawn back with the lever on the internet sales director. The tip of the trocar was engaged with the trabecular meshwork 1 clock hour below the horizontal meridian. The button on the internet sales director was pressed and the stent was deployed. A reflux of heme was noted in establishing the proper location of the stent. This was then repeated 1 clock hour above the horizontal meridian deploying the second stent. The internet sales director was removed from the eye. The patient's head and microscope were rotated back to primary position. BSS was used to hydrodissect. The lens was found to rotate freely. The lens was phacoemulsified using a divide and conquer technique. Residual cortex was removed with the I/A. Provisc was injected to expand the capsular bag. The lens was injected using the lens delivery system and positioned with a Stevie hook. Residual viscoelastic was removed with the I/A. BSS was used to hydrate the corneal wound. Antibiotic prophylaxis was injected. The speculum was removed from the eye. A shield was taped over the eye. The patient was sent in excellent condition to the recovery room with a shield. FAREED ARELLANO M.D. Jul 01, 2021 15:53
== END 2021-07-01 08:40 | disposition home or self-care (01) ==
LOC: M SDC 06:06
PROVIDERS: ATTEND Ophthalmology
DX: H25.11 Age-related nuclear cataract, right eye (principal); H40.1112 Primary open-angle glaucoma, right eye, moderate stage; Z88.0 Allergy status to penicillin; E11.9 Type 2 diabetes mellitus without complications; Z79.84 Long term (current) use of oral hypoglycemic drugs; E78.5 Hyperlipidemia, unspecified; K57.90 Diverticulosis of intestine, part unspecified, without perforation or abscess without bleeding; F32.9 Major depressive disorder, single episode, unspecified; Z79.899 Other long term (current) drug therapy
CPT/HCPCS: 66183; 66984; C1783; J1097; J2250; J2280; V2632

== ENCOUNTER → 2021-07-26 | Outpatient (REF) | payer MEDICARE ==
[~2021-07-26] MED LIST changes: -BSS IRR 500ML/OMIDRIA 4ML IRR BAG (OR ONLY) IO ONE; -CEFUROXIME 1MG/0.1ML INTRACAMERAL INJ ICAM ONE; -OFLOXACIN 0.3 % (OCUFLOX) OPTH SOL 5ML OD SCH; -PHENYLEPHRINE 2.5% OPHTH SOL 2ML OD SCH; -PROPARACAINE 0.5% OPHTH SOL 15ML OD ONE; -TROPICAMIDE 1% OPHTH SOLN 2ML OD SCH
== END ==
LOC: M LAB REF 17:49
PROVIDERS: ATTEND Physician Assistant
DX: C44.729 Squamous cell carcinoma of skin of left lower limb, including hip (principal)

== ENCOUNTER → 2021-08-15 | Outpatient (REF) | payer MEDICARE ==
[2021-08-15 19:30] LABS: APPEARANCE, URINE CLOUDY (CLEAR); BACTERIA, URINE AUTO 1+ (NEGATIVE); BILIRUBIN, URINE AUTO NEGATIVE (NEGATIVE); BLOOD, URINE BLOOD 1+ (NEGATIVE); COLOR, URINE YELLOW (YELLOW); GLUCOSE, URINE (UA) AUTO NEGATIVE (NEGATIVE); KETONE, URINE AUTO NEGATIVE (NEGATIVE); LEUKOCYTE ESTERASE, URINE AUTO 3+ (NEGATIVE); MUCUS, URINE SMALL (NEGATIVE); NITRITE, URINE AUTO NEGATIVE (NEGATIVE); PROTEIN, URINE AUTO 2+ mg/dL (NEGATIVE); RBC, URINE AUTO 21 /HPF (0-3); SQUAMOUS EPITHELIAL CELL UR AU 0 /HPF (0-6); TRANSITIONAL EPITHELIAL AUTO 1 /HPF; UROBILINOGEN, URINE AUTO 0.2 mg/dL (0.0-2.0); WBC, URINE AUTO TNTC /HPF (0-3)
== END ==
LOC: M SMT 17:42
PROVIDERS: ATTEND Nurse Practitioner Women's Health
DX: N39.0 Urinary tract infection, site not specified (principal)

== ENCOUNTER → 2021-10-20 | Outpatient (CLI) | payer MEDICARE ==
[~2021-10-20] MED LIST changes: +CALC1TAB63 PO; +DORZ1SOL4 OP; +DSS100CA PO; +MELA2.5C2 PO; +OMEG300C PO; +VITA200030 PO; +VITA500C24 PO; +VITMTA PO
== END ==
LOC: M LABSMTC 11:05
PROVIDERS: ATTEND Anesthesiology
DX: Z01.812 Encounter for preprocedural laboratory examination (principal); Z20.822 Contact with and (suspected) exposure to COVID-19

== ENCOUNTER 2021-10-25 06:42 | Day surgery (SDC) | payer MEDICARE ==
[~2021-10-25] VITALS: Ht 165.1 cm; Wt 63.0 kg
[~2021-10-25 06:42] MED LIST changes: +NS 1,000 ML IV ONE
[2021-10-25] MEDS ORDERED: LIDOCAINE 2% 100MG/5ML SDV (FOR ANES.) As Ordered ONE (07:03)
[2021-10-25] MEDS ORDERED: propofoL 200 MG/20 ML VIAL As Ordered ONE ×3 (07:03→08:20)
[2021-10-25] MEDS ORDERED: GLUCAGON INJ 1MG VIAL As Ordered ONE (08:00)
[2021-10-25 09:10] VITALS: BP 169/77
== END 2021-10-25 09:26 | disposition home or self-care (01) ==
LOC: M OPP 06:42
PROVIDERS: ATTEND Internal Medicine Gastroenterology
DX: Z12.11 Encounter for screening for malignant neoplasm of colon (principal); Z86.010 Personal history of colon polyps; K63.5 Polyp of colon; K57.30 Diverticulosis of large intestine without perforation or abscess without bleeding; K64.8 Other hemorrhoids; Z79.84 Long term (current) use of oral hypoglycemic drugs; Z79.899 Other long term (current) drug therapy; Z88.0 Allergy status to penicillin; Z88.2 Allergy status to sulfonamides; Z91.048 Other nonmedicinal substance allergy status
CPT/HCPCS: 45381; 45385; 88305; J1610

== ENCOUNTER → 2021-11-21 | Outpatient (REF) | payer MEDICARE ==
[~2021-11-21] MED LIST changes: -LISI-898 PO; +LISI5TAB11 PO; -NS 1,000 ML IV ONE
[2021-11-21 18:35] LABS: APPEARANCE, URINE TURBID (CLEAR); BACTERIA, URINE AUTO 1+ (NEGATIVE); BILIRUBIN, URINE AUTO NEGATIVE (NEGATIVE); BLOOD, URINE BLOOD 1+ (NEGATIVE); COLOR, URINE YELLOW (YELLOW); GLUCOSE, URINE (UA) AUTO 3+ mg/dL (NEGATIVE); KETONE, URINE AUTO NEGATIVE (NEGATIVE); LEUKOCYTE ESTERASE, URINE AUTO 3+ (NEGATIVE); MUCUS, URINE SMALL (NEGATIVE); NITRITE, URINE AUTO POSITIVE (NEGATIVE); PROTEIN, URINE AUTO 2+ mg/dL (NEGATIVE); RBC, URINE AUTO 26 /HPF (0-3); RENAL EPITHELIAL CELLS 3 /HPF; SPECIFIC GRAVITY URINE AUTO 1.008 (1.002-1.035); SQUAMOUS EPITHELIAL CELL UR AU 0 /HPF (0-6); UROBILINOGEN, URINE AUTO 0.2 mg/dL (0.0-2.0); WBC, URINE AUTO TNTC /HPF (0-3)
== END ==
LOC: M SMT 16:59
PROVIDERS: ATTEND Urology
DX: N39.0 Urinary tract infection, site not specified (principal)

== ENCOUNTER → 2022-01-24 | Outpatient (REF) | payer MEDICARE | LOC: M SFHCDERM 14:22 | PROVIDERS: ATTEND Dermatology | DX: C44.729 Squamous cell carcinoma of skin of left lower limb, including hip (principal) ==

== ENCOUNTER → 2022-04-03 | Outpatient (REF) | payer MEDICARE ==
[~2022-04-03] MED LIST changes: +MECL-136 PO
[2022-04-03 18:16] LABS: APPEARANCE, URINE CLOUDY (CLEAR); BACTERIA, URINE AUTO NEGATIVE (NEGATIVE); BILIRUBIN, URINE AUTO NEGATIVE (NEGATIVE); BLOOD, URINE BLOOD NEGATIVE (NEGATIVE); COLOR, URINE YELLOW (YELLOW); GLUCOSE, URINE (UA) AUTO NEGATIVE (NEGATIVE); KETONE, URINE AUTO NEGATIVE (NEGATIVE); LEUKOCYTE ESTERASE, URINE AUTO 3+ (NEGATIVE); MUCUS, URINE SMALL (NEGATIVE); NITRITE, URINE AUTO NEGATIVE (NEGATIVE); PROTEIN, URINE AUTO NEGATIVE (NEGATIVE); RBC, URINE AUTO 4 /HPF (0-3); RENAL EPITHELIAL CELLS 1 /HPF; SPECIFIC GRAVITY URINE AUTO 1.013 (1.002-1.035); SQUAMOUS EPITHELIAL CELL UR AU 0 /HPF (0-6); UROBILINOGEN, URINE AUTO 0.2 mg/dL (0.0-2.0); WBC, URINE AUTO TNTC /HPF (0-3)
== END ==
LOC: M SMT 16:42
PROVIDERS: ATTEND Urology
DX: R30.0 Dysuria (principal)

== ENCOUNTER → 2022-04-13 | Outpatient (CLI) | payer MEDICARE | LOC: M LABSMTC 10:09 | PROVIDERS: ATTEND Anesthesiology | DX: Z20.828 Contact with and (suspected) exposure to other viral communicable diseases (principal); Z11.59 Encounter for screening for other viral diseases ==

== ENCOUNTER 2022-04-18 06:43 | Day surgery (SDC) | payer MEDICARE ==
[~2022-04-18] VITALS: Ht 165.1 cm; Wt 63.2 kg
[2022-04-18] MEDS ORDERED: NS 1,000 ML IV ONE (07:35)
[2022-04-18 14:51] VITALS: BP 120/64
== END 2022-04-18 09:21 | disposition home or self-care (01) ==
LOC: M OPP 06:43
PROVIDERS: ATTEND Internal Medicine Gastroenterology
DX: Z86.010 Personal history of colon polyps (principal); K63.5 Polyp of colon; K57.30 Diverticulosis of large intestine without perforation or abscess without bleeding; K64.8 Other hemorrhoids; Z79.02 Long term (current) use of antithrombotics/antiplatelets; Z79.84 Long term (current) use of oral hypoglycemic drugs; Z79.899 Other long term (current) drug therapy; Z88.0 Allergy status to penicillin; Z88.2 Allergy status to sulfonamides; Z91.048 Other nonmedicinal substance allergy status; Z87.19 Personal history of other diseases of the digestive system

== ENCOUNTER → 2022-04-27 | Outpatient (REF) | payer MEDICARE ==
[2022-04-27 13:53] LABS: APPEARANCE, URINE TURBID (CLEAR); BACTERIA, URINE AUTO 3+ (NEGATIVE); BILIRUBIN, URINE AUTO NEGATIVE (NEGATIVE); BLOOD, URINE BLOOD 1+ (NEGATIVE); COLOR, URINE YELLOW (YELLOW); GLUCOSE, URINE (UA) AUTO NEGATIVE (NEGATIVE); GRANULAR CAST, URINE AUTO 36 /LPF; KETONE, URINE AUTO NEGATIVE (NEGATIVE); LEUKOCYTE ESTERASE, URINE AUTO 2+ (NEGATIVE); MUCUS, URINE SMALL (NEGATIVE); NITRITE, URINE AUTO NEGATIVE (NEGATIVE); PROTEIN, URINE AUTO 2+ mg/dL (NEGATIVE); RBC, URINE AUTO 58 /HPF (0-3); SPECIFIC GRAVITY URINE AUTO 1.014 (1.002-1.035); SQUAMOUS EPITHELIAL CELL UR AU 0 /HPF (0-6); UROBILINOGEN, URINE AUTO 0.2 mg/dL (0.0-2.0); WBC, URINE AUTO TNTC /HPF (0-3)
== END ==
LOC: M LAB REF 12:53
PROVIDERS: ATTEND Urology
DX: N39.0 Urinary tract infection, site not specified (principal)

== ENCOUNTER → 2022-05-19 | Outpatient (REF) | payer MEDICARE ==
[2022-05-19 17:37] LABS: APPEARANCE, URINE CLEAR (CLEAR); BACTERIA, URINE AUTO NEGATIVE (NEGATIVE); BILIRUBIN, URINE AUTO NEGATIVE (NEGATIVE); BLOOD, URINE BLOOD NEGATIVE (NEGATIVE); COLOR, URINE YELLOW (YELLOW); GLUCOSE, URINE (UA) AUTO NEGATIVE (NEGATIVE); KETONE, URINE AUTO NEGATIVE (NEGATIVE); LEUKOCYTE ESTERASE, URINE AUTO TRACE (NEGATIVE); MUCUS, URINE SMALL (NEGATIVE); NITRITE, URINE AUTO NEGATIVE (NEGATIVE); PROTEIN, URINE AUTO NEGATIVE (NEGATIVE); RBC, URINE AUTO 1 /HPF (0-3); SPECIFIC GRAVITY URINE AUTO 1.009 (1.002-1.035); SQUAMOUS EPITHELIAL CELL UR AU 0 /HPF (0-6); UROBILINOGEN, URINE AUTO 0.2 mg/dL (0.0-2.0); WBC, URINE AUTO 3 /HPF (0-3)
== END ==
LOC: M SMT 16:46
PROVIDERS: ATTEND Urology
DX: N39.0 Urinary tract infection, site not specified (principal)

== ENCOUNTER → 2022-06-21 | Outpatient (REF) | payer MEDICARE | LOC: M SFHCDERM 14:10 | PROVIDERS: ATTEND Physician Assistant | DX: C44.729 Squamous cell carcinoma of skin of left lower limb, including hip (principal) ==

== ENCOUNTER → 2022-06-29 | Outpatient (CLI) | payer MEDICARE | LOC: M LABSMTC 11:02 | PROVIDERS: ATTEND Anesthesiology | DX: Z01.818 Encounter for other preprocedural examination (principal); Z11.52 Encounter for screening for COVID-19 ==

== ENCOUNTER 2022-07-04 11:20 | Inpatient (IN) | payer MEDICARE ==
[~2022-07-04] VITALS: Ht 165.1 cm; Wt 69.0 kg
[2022-07-04] VITALS (8 sets, daily range): BP systolic 126–139; BP diastolic 60–75
[2022-07-04] MEDS: PANTOPRAZOLE 40MG VIAL IV SCH (09:00)
[~2022-07-04 11:20] MED LIST changes: +ERTAPENEM SODIUM 1 GM in NS MINI-BAG PLUS 50 ML IV ONE; +LIDOCAINE 2% 100MG/5ML SDV (FOR ANES.) As Ordered ONE; +MIDAZOLAM INJ 2MG/2ML VIAL (J2250 PER 1MG) As Ordered ONE; +ROCURONIUM BROMIDE 50 MG/5 ML VIAL As Ordered ONE; +fentaNYL 250 MCG/5 ML INJECTION As Ordered ONE; +propofoL 200 MG/20 ML VIAL As Ordered ONE
[2022-07-04] MEDS ORDERED: BUPIVACAINE/EPIN 0.25% 30 ML VIAL As Ordered ONE (12:04)
[2022-07-04] MEDS ORDERED: BUPIVACAINE LIPOSOME/PF 1.3% 20ML VIAL (13.3MG/ML)(EXPAREL) As Ordered ONE (12:04)
[2022-07-04] MEDS ORDERED: BUPIVACAINE HCL 0.25% 30ML VIAL As Ordered ONE (12:04)
[2022-07-04] MEDS ORDERED: GLUCAGON INJ 1MG VIAL As Ordered ONE (12:04)
[2022-07-04] MEDS ORDERED: HOME MED LIST COMPLETE! XX SCH (12:30)
[2022-07-04] MEDS ORDERED: LR 1,000 ML IV SCH ×2 (12:35→14:50)
[2022-07-04] MEDS ORDERED: LABETALOL 100MG/20ML VIAL As Ordered ONE (13:05)
[2022-07-04] MEDS ORDERED: ACETAMINOPHEN 1000MG 100ML IV BTL (OFIRMEV) (J0131 PER 10MG) As Ordered ONE (13:50)
[2022-07-04] MEDS ORDERED: ONDANSETRON 4MG 2ML VIAL As Ordered ONE (13:50)
[2022-07-04] MEDS ORDERED: METOCLOPRAMIDE INJ 10MG/2ML VIAL (J2765 PER 1) As Ordered ONE (13:50)
[2022-07-04] MEDS ORDERED: SUGAMMADEX SODIUM 500 MG/5 ML VIAL (BRIDION) As Ordered ONE ×2 (13:50→14:29)
[2022-07-04] MEDS ORDERED: KETOROLAC 60MG 2ML VIAL As Ordered ONE (13:50)
[2022-07-04] MEDS ORDERED: ROCURONIUM BROMIDE 50 MG/5 ML VIAL As Ordered ONE (13:50)
[2022-07-04] MEDS ORDERED: HYDROmorphone HCL 2MG/ML 1ML VIAL As Ordered ONE (13:50)
[2022-07-04] MEDS ORDERED: MORPHINE 2 MG/ML 1ML VIAL IV PRN ×3 (14:50→14:55)
[2022-07-04] MEDS ORDERED: fentaNYL 100 MCG/2 ML INJECTION IV PRN (14:50)
[2022-07-04] MEDS ORDERED: oxyCODONE 5MG TAB PO PRN (14:50)
[2022-07-04] MEDS ORDERED: ONDANSETRON 4MG 2ML VIAL IV PRN ×2 (14:50→14:55)
[2022-07-04] MEDS ORDERED: IPRATROPIUM 0.5MG/ALBUTEROL 2.5MG INH SOL UD 3ML (DUONEB) NEB PRN (14:55)
[2022-07-04] MEDS ORDERED: MORPHINE 4 MG/ML 1ML VIAL/SYRINGE IV PRN (14:55)
[2022-07-04] MEDS ORDERED: GLUCAGON INJ 1MG VIAL SC PRN (15:10)
[2022-07-04] MEDS ORDERED: GLUCOSE 4GM CHEW TABLET PO PRN (15:10)
[2022-07-04] MEDS ORDERED: DEXTROSE 50% 50 ML SYRINGE IV PRN (15:10)
[2022-07-04] MEDS: NS 1,000 ML IV SCH ×2 (15:56→23:22)
[2022-07-04] MEDS: INSULIN LISPRO (NovoLOG) PER UNIT SC SCH ×2 (17:50→23:45)
[2022-07-04] MEDS: IPRATROPIUM 0.5MG/ALBUTEROL 2.5MG INH SOL UD 3ML (DUONEB) NEB SCH (19:42)
[2022-07-04] MEDS: CitaloPRAM (CeleXA) 20 MG TAB PO SCH (20:06)
[2022-07-04] MEDS: KETOROLAC 30 MG/ML 1ML VIAL IV SCH (20:07)
[2022-07-04] MEDS ORDERED: lisinopriL 5 MG TAB PO SCH (21:00)
[2022-07-05] MEDS: KETOROLAC 30 MG/ML 1ML VIAL IV SCH ×4 (01:50→20:09)
[2022-07-05] MEDS: IPRATROPIUM 0.5MG/ALBUTEROL 2.5MG INH SOL UD 3ML (DUONEB) NEB SCH ×4 (03:08→19:22)
[2022-07-05 04:00] VITALS: BP 110/55
[2022-07-05 06:00] VITALS: BP 106/56
[2022-07-05] MEDS: INSULIN LISPRO (NovoLOG) PER UNIT SC SCH ×3 (06:35→17:13)
[2022-07-05] MEDS: NS 1,000 ML IV SCH ×3 (06:36→22:56)
[2022-07-05 07:03] LABS: HEMATOCRIT 32.6 % (36.0-47.0); HEMOGLOBIN 10.6 g/dl (12.0-15.5); MEAN CORPUSCULAR HEMOGLOBIN 28.7 pg (27.0-33.0); MEAN CORPUSCULAR HGB CONC 32.5 g/dl (32.0-36.5); MEAN CORPUSCULAR VOLUME 88.3 fl (80.0-96.0); PLATELET COUNT, AUTOMATED 177 10^3/uL (150-450); RED BLOOD COUNT 3.69 10^6/uL (4.00-5.40); WHITE BLOOD COUNT 8.1 10^3/uL (4.0-10.0)
[2022-07-05 07:27] LABS: BLOOD UREA NITROGEN 10 MG/DL (7-18); CALCIUM LEVEL 7.7 MG/DL (8.8-10.2); CARBON DIOXIDE LEVEL 25 MEQ/L (21-32); CHLORIDE LEVEL 113 MEQ/L (98-107); CREATININE FOR GFR 0.83 MG/DL (0.55-1.30); GLOMERULAR FILTRATION RATE > 60.0 (>32); GLUCOSE, FASTING 118 MG/DL (70-100); POTASSIUM SERUM 3.6 MEQ/L (3.5-5.1); SODIUM LEVEL 143 MEQ/L (136-145)
[2022-07-05] MEDS: PANTOPRAZOLE 40MG VIAL IV SCH (08:35)
[2022-07-05 10:00] VITALS: BP 112/53
[2022-07-05 14:00] VITALS: BP 112/55
[2022-07-05] MEDS ORDERED: GLUCAGON INJ 1MG VIAL SC PRN (16:55)
[2022-07-05] MEDS ORDERED: DEXTROSE 50% 50 ML SYRINGE IV PRN (16:55)
[2022-07-05] MEDS ORDERED: GLUCOSE 4GM CHEW TABLET PO PRN (16:55)
[2022-07-05 18:00] VITALS: BP 133/61
[2022-07-05] MEDS: CitaloPRAM (CeleXA) 20 MG TAB PO SCH (20:08)
[2022-07-05] MEDS ORDERED: INSULIN LISPRO (NovoLOG) PER UNIT SC SCH (21:00)
[2022-07-05 22:00] VITALS: BP 141/63
[2022-07-06 02:00] VITALS: BP 136/65
[2022-07-06] MEDS: KETOROLAC 30 MG/ML 1ML VIAL IV SCH ×3 (02:11→14:04)
[2022-07-06] MEDS: IPRATROPIUM 0.5MG/ALBUTEROL 2.5MG INH SOL UD 3ML (DUONEB) NEB SCH ×2 (03:00→07:22)
[2022-07-06 05:27] VITALS: BP 137/65
[2022-07-06] MEDS: NS 1,000 ML IV SCH (05:57)
[2022-07-06 06:11] LABS: HEMATOCRIT 30.6 % (36.0-47.0); HEMOGLOBIN 9.7 g/dl (12.0-15.5); MEAN CORPUSCULAR HEMOGLOBIN 28.3 pg (27.0-33.0); MEAN CORPUSCULAR HGB CONC 31.7 g/dl (32.0-36.5); MEAN CORPUSCULAR VOLUME 89.2 fl (80.0-96.0); PLATELET COUNT, AUTOMATED 159 10^3/uL (150-450); RED BLOOD COUNT 3.43 10^6/uL (4.00-5.40); WHITE BLOOD COUNT 6.6 10^3/uL (4.0-10.0)
[2022-07-06 06:49] LABS: BLOOD UREA NITROGEN 5 MG/DL (7-18); CALCIUM LEVEL 7.6 MG/DL (8.8-10.2); CARBON DIOXIDE LEVEL 21 MEQ/L (21-32); CHLORIDE LEVEL 116 MEQ/L (98-107); CREATININE FOR GFR 0.67 MG/DL (0.55-1.30); GLOMERULAR FILTRATION RATE > 60.0 (>32); GLUCOSE, FASTING 117 MG/DL (70-100); POTASSIUM SERUM 3.5 MEQ/L (3.5-5.1); SODIUM LEVEL 144 MEQ/L (136-145)
[2022-07-06 08:00] VITALS: BP 140/52
[2022-07-06] MEDS: INSULIN LISPRO (NovoLOG) PER UNIT SC SCH ×2 (08:56→12:28)
[2022-07-06] MEDS: PANTOPRAZOLE 40MG VIAL IV SCH (08:56)
[2022-07-06 10:00] VITALS: BP 145/62
[2022-07-06] MEDS ORDERED: FUROSEMIDE 20MG/2ML VIAL (J1940) IV ONE (10:00)
== END 2022-07-06 18:34 | disposition home or self-care (01) | DRG 331 ==
LOC: M OR 11:20 → M MSPAV 15:46
PROVIDERS: ADMIT Surgery; ATTEND Surgery
PROC: 0DBF4ZZ Excision of Right Large Intestine, Percutaneous Endoscopic Approach (ICD-10-PCS; principal; 2022-07-04 13:30)
DX: K63.5 Polyp of colon (principal); I10 Essential (primary) hypertension; E78.5 Hyperlipidemia, unspecified; E11.9 Type 2 diabetes mellitus without complications; Z79.899 Other long term (current) drug therapy; Z96.653 Presence of artificial knee joint, bilateral; Z85.828 Personal history of other malignant neoplasm of skin

== ENCOUNTER → 2022-08-11 | Outpatient (REF) | payer MEDICARE ==
[~2022-08-11] MED LIST changes: -ERTAPENEM SODIUM 1 GM in NS MINI-BAG PLUS 50 ML IV ONE; -LIDOCAINE 2% 100MG/5ML SDV (FOR ANES.) As Ordered ONE; -MIDAZOLAM INJ 2MG/2ML VIAL (J2250 PER 1MG) As Ordered ONE; -ROCURONIUM BROMIDE 50 MG/5 ML VIAL As Ordered ONE; -fentaNYL 250 MCG/5 ML INJECTION As Ordered ONE; -propofoL 200 MG/20 ML VIAL As Ordered ONE
[2022-08-11 18:07] LABS: APPEARANCE, URINE MANUAL HAZY (CLEAR); COLOR, URINE MANUAL YELLOW (YELLOW)
[2022-08-11 18:08] LABS: BILIRUBIN, URINE MANUAL NEGATIVE (NEGATIVE); BLOOD URINE MANUAL POSITIVE (NEGATIVE); GLUCOSE, URINE (UA) MANUAL NEGATIVE (NEGATIVE); KETONE, URINE MANUAL NEGATIVE (NEGATIVE); LEUKOCYTE ESTERASE, URINE MAN POSITIVE (NEGATIVE); NITRITE, URINE MANUAL NEGATIVE (NEGATIVE); PROTEIN, URINE MANUAL 1+ mg/dL (NEGATIVE); SPECIFIC GRAVITY,URINE MANUAL 1.015 (1.002-1.035); UROBILINOGEN, URINE MANUAL NORMAL (NORMAL)
[2022-08-11 19:18] LABS: RBC, URINE 0-1 /hpf (0-3); WBC, URINE TNTC /hpf (0-3)
[2022-08-11 19:19] LABS: BACTERIA, URINE LARGE AMOUNT; SQUAMOUS EPITHELIAL CELL URINE SMALL AMOUNT /hpf (SMALL AMT)
== END ==
LOC: M SMT 16:56
PROVIDERS: ATTEND Nurse Practitioner Women's Health
DX: R30.0 Dysuria (principal)

== ENCOUNTER → 2022-11-02 | Outpatient (CLI) | payer MEDICARE | LOC: M WHC 13:44 | PROVIDERS: ATTEND Physician Assistant | DX: T85.42XA Displacement of breast prosthesis and implant, initial encounter (principal) ==

== ENCOUNTER → 2023-05-14 | Outpatient (REF) | payer MEDICARE ==
[~2023-05-14] MED LIST changes: -MELA2.5C2 PO; +MELA2.5T11 PO
[2023-05-14 13:54] LABS: APPEARANCE, URINE CLOUDY (CLEAR); BACTERIA, URINE AUTO 1+ (NEGATIVE); BILIRUBIN, URINE AUTO NEGATIVE (NEGATIVE); BLOOD, URINE BLOOD 1+ (NEGATIVE); COLOR, URINE YELLOW (YELLOW); GLUCOSE, URINE (UA) AUTO NEGATIVE (NEGATIVE); KETONE, URINE AUTO NEGATIVE (NEGATIVE); LEUKOCYTE ESTERASE, URINE AUTO 3+ (NEGATIVE); MUCUS, URINE SMALL (NEGATIVE); NITRITE, URINE AUTO NEGATIVE (NEGATIVE); PROTEIN, URINE AUTO NEGATIVE (NEGATIVE); RBC, URINE AUTO 10 /HPF (0-3); SPECIFIC GRAVITY URINE AUTO 1.012 (1.002-1.035); SQUAMOUS EPITHELIAL CELL UR AU 0 /HPF (0-6); UROBILINOGEN, URINE AUTO 0.2 mg/dL (0.0-2.0); WBC, URINE AUTO TNTC /HPF (0-3)
== END ==
LOC: M SMT 13:09
PROVIDERS: ATTEND Physician Assistant
DX: R30.0 Dysuria (principal)

== ENCOUNTER → 2023-11-28 | Outpatient (CLI) | payer MEDICARE | LOC: M WHC 10:30 | PROVIDERS: ATTEND Physician Assistant | DX: T85.42XA Displacement of breast prosthesis and implant, initial encounter (principal) ==

== ENCOUNTER → 2023-11-30 | Outpatient (CLI) | payer MEDICARE | LOC: M WHC 11:01 | PROVIDERS: ATTEND Physician Assistant | DX: Z12.31 Encounter for screening mammogram for malignant neoplasm of breast (principal) ==

== ENCOUNTER → 2023-12-12 | Outpatient (REF) | payer MEDICARE | LOC: M SFHCDERM 17:08 | PROVIDERS: ATTEND Physician Assistant | DX: B02.9 Zoster without complications (principal) ==

== ENCOUNTER → 2024-05-20 | Outpatient (CLI) | payer MEDICARE ==
[~2024-05-20] MED LIST changes: +MULTTAB61 PO; +TIMO0.5S20
== END ==
LOC: M RAD 11:32
PROVIDERS: ATTEND Physician Assistant
DX: Z01.818 Encounter for other preprocedural examination (principal); I10 Essential (primary) hypertension

== ENCOUNTER 2024-05-29 09:56 | Observation (INO) | payer MEDICARE ==
[~2024-05-29] VITALS: Ht 165.1 cm; Wt 62.0 kg
[2024-05-29] VITALS (8 sets, daily range): BP systolic 109–130; BP diastolic 58–83; TEMP 97.2–98; O2SAT 93–95
[~2024-05-29 09:56] MED LIST changes: +LIDOCAINE 2% 100MG/5ML SDV (FOR ANES.) As Ordered ONE; +MIDAZOLAM INJ 2MG/2ML VIAL As Ordered ONE; +ONDANSETRON 4MG 2ML VIAL As Ordered ONE; +ROCURONIUM BROMIDE 50MG/5ML VIAL As Ordered ONE; +SUGAMMADEX SODIUM 500 MG/5 ML VIAL (BRIDION) As Ordered ONE; +fentaNYL 250 MCG/5 ML INJECTION As Ordered ONE; +propofoL 200 MG/20 ML VIAL As Ordered ONE
[2024-05-29] MEDS ORDERED: LR 1,000 ML IV SCH (10:35)
[2024-05-29] MEDS ORDERED: dexmedeTOMIDine (4MCG/ML)200MCG/50ML BTL (PRECEDEX) As Ordered ONE (12:23)
[2024-05-29] MEDS: CLINDAMYCIN 900MG/50ML PREMIX BAG As Ordered ONE (13:50)
[2024-05-29] MEDS: HEPARIN SOD (PORCINE) 5000UNITS/ML 1ML VIAL/SYRINGE SQ ONE (13:55)
[2024-05-29] MEDS ORDERED: ePHEDrine SULFATE 25 MG/5 ML(5MG/ML) SYRINGE As Ordered ONE (13:59)
[2024-05-29] MEDS ORDERED: PHENYLephrine 500MCG 5ML (100MCG/ML) SYRINGE As Ordered ONE (14:03)
[2024-05-29] MEDS ORDERED: ACETAMINOPHEN 1000MG 100ML IV BAG As Ordered ONE (14:25)
[2024-05-29] MEDS: GENTAMICIN SULF 80MG/2ML VIAL As Ordered ONE (14:27)
[2024-05-29] MEDS ORDERED: HYDROmorphone HCL 2MG/ML 1ML VIAL As Ordered ONE (14:39)
[2024-05-29] MEDS ORDERED: ONDANSETRON 4MG 2ML VIAL IV PRN ×2 (17:40→18:05)
[2024-05-29] MEDS ORDERED: fentaNYL 100 MCG/2 ML INJECTION IV PRN (17:40)
[2024-05-29] MEDS: LR 1,000 ML IV SCH ×2 (17:40→19:22)
[2024-05-29] MEDS ORDERED: PERCOCET 5MG/325MG TAB PO PRN (18:05)
[2024-05-29] MEDS ORDERED: DOCUSATE SODIUM 100MG CAPSULE PO PRN (18:05)
[2024-05-29] MEDS ORDERED: MECLIZINE 12.5 MG TAB PO PRN (18:05)
[2024-05-29] MEDS ORDERED: traMADol 50 MG TAB PO PRN (18:05)
[2024-05-29] MEDS: LATANOPROST 0.005% OPHTH SOLN 2.5 ML OU SCH (21:18)
[2024-05-29] MEDS: CLINDAMYCIN 900 MG in IV 1 EA IV SCH (21:18)
[2024-05-29] MEDS: lisinopriL 5 MG TAB PO SCH (21:19)
[2024-05-29] MEDS: SIMVASTATIN 10 MG TAB PO SCH (21:19)
[2024-05-29] MEDS: ACETAMINOPHEN TAB 650MG DOSE (2X325MG) PO PRN (21:49)
[2024-05-30 04:44] VITALS: BP 108/69; TEMP 97.2; O2SAT 94
[2024-05-30] MEDS: ASCORBIC ACID 500 MG TAB PO SCH (09:22)
[2024-05-30] MEDS: TIMOLOL MALEATE 0.5% OPHTH SOLN 5 ML OU SCH (11:26)
[2024-05-30] MEDS ORDERED: metFORMIN (GLUCOPHAGE) 500MG TAB PO SCH (21:00)
== END 2024-05-30 13:30 | disposition home or self-care (01) ==
LOC: M SDC 09:56 → M MS5PR 09:57
PROVIDERS: ADMIT Plastic Surgery Surgery of the Hand; ATTEND Plastic Surgery Surgery of the Hand
DX: T85.43XA Leakage of breast prosthesis and implant, initial encounter (principal); T85.44XA Capsular contracture of breast implant, initial encounter; I10 Essential (primary) hypertension; E78.5 Hyperlipidemia, unspecified; E11.9 Type 2 diabetes mellitus without complications; K57.92 Diverticulitis of intestine, part unspecified, without perforation or abscess without bleeding; K44.9 Diaphragmatic hernia without obstruction or gangrene; F41.9 Anxiety disorder, unspecified; F32.A Depression, unspecified; Z79.899 Other long term (current) drug therapy; Z79.84 Long term (current) use of oral hypoglycemic drugs; Z88.2 Allergy status to sulfonamides; Z88.0 Allergy status to penicillin
CPT/HCPCS: 19316; 19330; 19370; 88300; 88302; 96365; 96366; C9290; G0378; J0131; J0665; J0737; J1100; J1170; J1580; J2250; J2371; J2405; J3010

== ENCOUNTER → 2024-07-23 | Outpatient (REF) | payer MEDICARE ==
[~2024-07-23] MED LIST changes: -LIDOCAINE 2% 100MG/5ML SDV (FOR ANES.) As Ordered ONE; -MIDAZOLAM INJ 2MG/2ML VIAL As Ordered ONE; -ONDANSETRON 4MG 2ML VIAL As Ordered ONE; -ROCURONIUM BROMIDE 50MG/5ML VIAL As Ordered ONE; -SUGAMMADEX SODIUM 500 MG/5 ML VIAL (BRIDION) As Ordered ONE; -fentaNYL 250 MCG/5 ML INJECTION As Ordered ONE; -propofoL 200 MG/20 ML VIAL As Ordered ONE
== END ==
LOC: M SFHCDERM 17:42
PROVIDERS: ATTEND Physician Assistant
DX: L57.0 Actinic keratosis (principal)

== ENCOUNTER → 2024-09-03 | Outpatient (REF) | payer MEDICARE ==
[2024-09-03 17:39] LABS: APPEARANCE, URINE CLOUDY (CLEAR); BACTERIA, URINE AUTO 1+ (NEGATIVE); BILIRUBIN, URINE AUTO NEGATIVE (NEGATIVE); BLOOD, URINE BLOOD NEGATIVE (NEGATIVE); COLOR, URINE YELLOW (YELLOW); GLUCOSE, URINE (UA) AUTO 1+ mg/dL (NEGATIVE); KETONE, URINE AUTO NEGATIVE (NEGATIVE); LEUKOCYTE ESTERASE, URINE AUTO 3+ (NEGATIVE); MUCUS, URINE SMALL (NEGATIVE); NITRITE, URINE AUTO POSITIVE (NEGATIVE); PROTEIN, URINE AUTO NEGATIVE (NEGATIVE); RBC, URINE AUTO 5 /HPF (0-3); SPECIFIC GRAVITY URINE AUTO 1.009 (1.002-1.035); SQUAMOUS EPITHELIAL CELL UR AU 0 /HPF (0-6); UROBILINOGEN, URINE AUTO 0.2 mg/dL (0.0-2.0); WBC, URINE AUTO TNTC /HPF (0-3)
== END ==
LOC: M SMT 17:04
PROVIDERS: ATTEND Urology
DX: R39.9 Unspecified symptoms and signs involving the genitourinary system (principal)

== ENCOUNTER → 2024-09-15 | Outpatient (REF) | payer MEDICARE | LOC: M SFHCDERM 18:10 | PROVIDERS: ATTEND Physician Assistant | DX: C44.729 Squamous cell carcinoma of skin of left lower limb, including hip (principal) ==

== ENCOUNTER → 2024-09-29 | Outpatient (REF) | payer MEDICARE ==
[2024-09-29 15:53] LABS: APPEARANCE, URINE CLOUDY (CLEAR); BACTERIA, URINE AUTO 1+ (NEGATIVE); BILIRUBIN, URINE AUTO NEGATIVE (NEGATIVE); BLOOD, URINE BLOOD NEGATIVE (NEGATIVE); COLOR, URINE YELLOW (YELLOW); GLUCOSE, URINE (UA) AUTO NEGATIVE (NEGATIVE); KETONE, URINE AUTO NEGATIVE (NEGATIVE); LEUKOCYTE ESTERASE, URINE AUTO 3+ (NEGATIVE); MUCUS, URINE SMALL (NEGATIVE); NITRITE, URINE AUTO NEGATIVE (NEGATIVE); PROTEIN, URINE AUTO NEGATIVE (NEGATIVE); RBC, URINE AUTO 3 /HPF (0-3); SPECIFIC GRAVITY URINE AUTO 1.014 (1.002-1.035); SQUAMOUS EPITHELIAL CELL UR AU 1 /HPF (0-6); UROBILINOGEN, URINE AUTO 0.2 mg/dL (0.0-2.0); WBC, URINE AUTO TNTC /HPF (0-3)
== END ==
LOC: M SMT 14:56
PROVIDERS: ATTEND Urology
DX: R39.9 Unspecified symptoms and signs involving the genitourinary system (principal)

== ENCOUNTER → 2024-12-11 | Outpatient (CLI) | payer MEDICARE | LOC: M WHC 11:00 | PROVIDERS: ATTEND Physician Assistant | DX: R92.2 Inconclusive mammogram (principal) ==

== ENCOUNTER → 2025-03-04 | Outpatient (REF) | payer MEDICARE ==
[2025-03-04 13:37] LABS: APPEARANCE, URINE CLOUDY (CLEAR); BACTERIA, URINE AUTO 1+ (NEGATIVE); BILIRUBIN, URINE AUTO NEGATIVE (NEGATIVE); BLOOD, URINE BLOOD NEGATIVE (NEGATIVE); COLOR, URINE YELLOW (YELLOW); GLUCOSE, URINE (UA) AUTO NEGATIVE (NEGATIVE); KETONE, URINE AUTO NEGATIVE (NEGATIVE); LEUKOCYTE ESTERASE, URINE AUTO 3+ (NEGATIVE); MUCUS, URINE SMALL (NEGATIVE); NITRITE, URINE AUTO POSITIVE (NEGATIVE); PROTEIN, URINE AUTO 1+ mg/dL (NEGATIVE); RBC, URINE AUTO 10 /HPF (0-3); SPECIFIC GRAVITY URINE AUTO 1.018 (1.002-1.035); SQUAMOUS EPITHELIAL CELL UR AU 0 /HPF (0-6); TRANSITIONAL EPITHELIAL AUTO 1 /HPF; UROBILINOGEN, URINE AUTO 0.2 mg/dL (0.0-2.0); WBC, URINE AUTO TNTC /HPF (0-3)
== END ==
LOC: M SMT 13:02
PROVIDERS: ATTEND Urology
DX: R39.9 Unspecified symptoms and signs involving the genitourinary system (principal)

== ENCOUNTER → 2025-05-20 | Outpatient (CLI) | payer MEDICARE ==
[~2025-05-20] MED LIST changes: +ONDA-282 PO
[2025-05-20 14:42] LABS: ESTIMATED AVERAGE GLUCOSE 171.0 MG/DL (60-110)
== END ==
LOC: M WUC 11:50
PROVIDERS: ATTEND Physician Assistant
DX: E11.9 Type 2 diabetes mellitus without complications (principal); M25.552 Pain in left hip

== ENCOUNTER 2025-06-23 06:43 | Day surgery (SDC) | payer MEDICARE ==
[~2025-06-23] VITALS: Ht 165.1 cm; Wt 60.9 kg
[~2025-06-23 06:43] MED LIST changes: +BIOT1CAP2 PO; +TIMOXEOPD OU
[2025-06-23] MEDS ORDERED: LIDOCAINE 2% 100 MG/5 ML SDV (FOR ANES.) As Ordered ONE (06:52)
[2025-06-23 07:51] VITALS: TEMP 96.9
[2025-06-23 08:06] VITALS: BP 148/65; O2SAT 100
== END 2025-06-23 08:20 | disposition home or self-care (01) ==
LOC: M OPP 06:43
PROVIDERS: ATTEND Internal Medicine Gastroenterology
DX: D12.6 Benign neoplasm of colon, unspecified (principal); K57.30 Diverticulosis of large intestine without perforation or abscess without bleeding; K64.8 Other hemorrhoids; Z98.0 Intestinal bypass and anastomosis status; Z86.0101 Personal history of adenomatous and serrated colon polyps; Z88.1 Allergy status to other antibiotic agents; Z88.2 Allergy status to sulfonamides; Z91.048 Other nonmedicinal substance allergy status; Z79.84 Long term (current) use of oral hypoglycemic drugs; Z79.899 Other long term (current) drug therapy

== ENCOUNTER → 2025-07-01 | Outpatient (REF) | payer MEDICARE ==
[2025-07-01 16:22] LABS: APPEARANCE, URINE TURBID (CLEAR); BACTERIA, URINE AUTO 2+ (NEGATIVE); BILIRUBIN, URINE AUTO NEGATIVE (NEGATIVE); BLOOD, URINE BLOOD 2+ (NEGATIVE); GLUCOSE, URINE (UA) AUTO NEGATIVE (NEGATIVE); KETONE, URINE AUTO NEGATIVE (NEGATIVE); LEUKOCYTE ESTERASE, URINE AUTO 2+ (NEGATIVE); MUCUS, URINE SMALL (NEGATIVE); NITRITE, URINE AUTO NEGATIVE (NEGATIVE); PROTEIN, URINE AUTO 2+ mg/dL (NEGATIVE); RBC, URINE AUTO 30 /HPF (0-3); SPECIFIC GRAVITY URINE AUTO 1.016 (1.002-1.035); SQUAMOUS EPITHELIAL CELL UR AU 1 /HPF (0-6); UROBILINOGEN, URINE AUTO 0.2 mg/dL (0.0-2.0); WBC, URINE AUTO TNTC /HPF (0-3)
== END ==
LOC: EEVIPCON 16:03 → M SMT 16:03
PROVIDERS: ATTEND Urology
DX: R39.9 Unspecified symptoms and signs involving the genitourinary system (principal)

== ENCOUNTER → 2025-10-06 | Outpatient (REF) | payer MEDICARE ==
[~2025-10-06] MED LIST changes: +DOCU-215 PO; -DSS100CA PO
[2025-10-06 14:22] LABS: APPEARANCE, URINE CLOUDY (CLEAR); BACTERIA, URINE AUTO 3+ (NEGATIVE); BILIRUBIN, URINE AUTO NEGATIVE (NEGATIVE); BLOOD, URINE BLOOD 1+ (NEGATIVE); GLUCOSE, URINE (UA) AUTO NEGATIVE (NEGATIVE); KETONE, URINE AUTO NEGATIVE (NEGATIVE); LEUKOCYTE ESTERASE, URINE AUTO 2+ (NEGATIVE); MUCUS, URINE SMALL (NEGATIVE); NITRITE, URINE AUTO NEGATIVE (NEGATIVE); PROTEIN, URINE AUTO 1+ mg/dL (NEGATIVE); RBC, URINE AUTO 62 /HPF (0-3); SPECIFIC GRAVITY URINE AUTO 1.017 (1.002-1.035); SQUAMOUS EPITHELIAL CELL UR AU 0 /HPF (0-6); UROBILINOGEN, URINE AUTO 0.2 mg/dL (0.0-2.0); WBC, URINE AUTO TNTC /HPF (0-3)
== END ==
LOC: M SMT 13:17
PROVIDERS: ATTEND Urology
DX: R39.9 Unspecified symptoms and signs involving the genitourinary system (principal)